=== PATIENT | male | born 1985 ===

== ENCOUNTER 2022-05-24 06:00 | Day surgery (SDC) | payer OTHER ==
[~2022-05-24] VITALS: Ht 162.6 cm; Wt 71.7 kg
[~2022-05-24 06:00] MED LIST: ACID REDUCER20 M1 PO; ADULT LOW DOSE81 M1 PO; FARXIGA10 MG PO; JANUMET 50-1,01 EACH PO
== END 2022-05-24 15:50 | disposition home or self-care (01) ==
LOC: CIR.AMB 06:00
PROVIDERS: ATTEND Urology
DX: N47.1 Phimosis (principal); N47.7 Other inflammatory diseases of prepuce; Z20.822 Contact with and (suspected) exposure to COVID-19; J45.909 Unspecified asthma, uncomplicated; E11.9 Type 2 diabetes mellitus without complications